=== PATIENT | female | born 1990 | race Caucasian/White ===

== ENCOUNTER 2023-11-16 03:49 | Inpatient (IN) ==
[2023-11-16 05:12] LABS: Urine Benzodiazepine Screen None Detected (None Detect); Urine Cannabinoids Screen None Detected (None Detect); Urine Opiates Screen None Detected (None Detect)
[2023-11-16] MEDS ORDERED: Lidocaine 1% VIAL 10 MG/ML 30 ML VIAL INJ PRN (05:12)
[2023-11-16] MEDS ORDERED: SYNTHROID 50 MCG PO SCH (06:00)
[2023-11-16 06:06] LABS: ABS Basophils 0.1 10^3/uL (0.0-0.1); ABS Eosinophils 0.1 10^3/uL (0.0-0.5); ABS Lymphocytes 1.5 10^3/uL (1.0-4.8); ABS Monocytes 0.8 10^3/uL (0.0-0.9); ABS Neutrophils 9.7 10^3/uL (1.5-7.6); Eosinophil % 0.7 %; Hematocrit 39.9 % (35-45); Hemoglobin 13.1 g/dL (11.5-14.3); Lymphocyte % 12.4 %; Mean Corpuscular Hemoglobin 28.1 pg (27-33); Mean Corpuscular Hgb Conc 32.9 g/dL (31-36); Mean Corpuscular Volume 85.5 fL (80-97); Mean Platelet Volume 9.3 fL (7.5-11.2); Platelet Count 250 10^3/uL (150-450); Red Blood Count 4.66 10^6/uL (3.63-4.92); White Blood Count 12.2 10^3/uL (3.8-11.8)
[2023-11-16 06:08] LABS: Urine Creatinine Concentration 46.62 mg/dL (20.00-320.00); Urine TP Creat Ratio 0.64 mg/mg
[2023-11-16 06:21] LABS: Albumin 3.7 g/dL (3.2-5.2); Albumin/Globulin Ratio 1.5 (1-3); Calcium 9.5 mg/dL (8.6-10.3); Creatinine, Serum 0.57 mg/dL (0.51-0.95); Globulin 2.5 g/dL (2-4); Potassium 3.9 mmol/L (3.5-5.0); Total Bilirubin 0.4 mg/dL (0.2-1.0); Total Protein 6.2 g/dL (6.4-8.9); eGFR CKD-EPI 124.5 (>60)
[2023-11-16 06:30] LABS: Uric Acid 4.8 mg/dL (2.3-6.6)
[2023-11-16] MEDS ORDERED: Calcium Carb (TUMS) 500 mg CHEW TAB PO PRN (09:05)
[2023-11-16] MEDS: miSOPROStol 100 mcg TAB PO ONE ×2 (12:08→19:25)
[2023-11-16] MEDS: Lactated Ringers 1000 ml BAG 1,000 ML IV SCH (17:05)
[2023-11-16] MEDS: Oxytocin in LR 20,000 MILLI.UNIT/1,000 ML BAG IV SCH (17:08)
[2023-11-17] MEDS: fentaNYL 100 mcg/2 ml 50 MCG/ML VIAL IV SLOW PU SCH (01:43)
[2023-11-17] MEDS: Phenylephrine 40 mcg/mL 10mL (400mcg) SYRINGE IV PUSH PRN (03:28)
[2023-11-17] MEDS: Lidocaine/Epinephrin 1.5%/200 5 ML AMP INJ ONE (04:06)
[2023-11-17 04:28] LABS: Urine Appearance Turbid; Urine Bilirubin Negative (Negative); Urine Blood 2+ (Negative); Urine Color Yellow; Urine Glucose Negative (Negative); Urine Ketones 4+ (Negative); Urine Nitrite Negative (Negative); Urine Protein 1+ (>=30 mg/dL) (Negative); Urine Specific Gravity 1.027 (1.002-1.030); Urine Urobilinogen Negative (Negative)
[2023-11-17] MEDS: OBEPIDURAL (200 ML) 200 ML EPIDURAL ONE (04:40)
[2023-11-17] MEDS ORDERED: Phenylephrine 40 mcg/mL 10mL (400mcg) SYRINGE IV PUSH PRN (04:48)
[2023-11-17 05:18] LABS: Urine Bacteria Absent /HPF (Absent); Urine Red Blood Cell 3+(>10/hpf) /HPF (0-Trace); Urine Squamous Epithelial Cell Present /HPF (Absent); Urine White Blood Cell 2+(11-20/hpf) /HPF (0-Trace)
[2023-11-17] MEDS: Lactated Ringers 1000 ml BAG 1,000 ML IV ONE (05:24)
[2023-11-17] MEDS: Lactated Ringers 1000 ml BAG 1,000 ML IV SCH (05:24)
[2023-11-17] MEDS: OBEPIDURAL (200 ML) 200 ML EPIDURAL SCH (05:25)
[2023-11-17] MEDS: Ondansetron 4 mg VIAL 2 MG/ML 2 ml VIAL IV PRN (09:14)
[2023-11-17] MEDS ORDERED: Bupivacaine-MPF SPINAL 7.5 MG/ML - 2ML AMP ONE (09:36)
[2023-11-17] MEDS: Sodium Citrate/Citric Acid LIQ 15 ML UDC PO PRN (16:42)
[2023-11-17] MEDS: Ampicillin ADVAN 2 GM in NS 0.9% 100 ml BAG 100 ML IVPB SCH (16:45)
[2023-11-17] MEDS ORDERED: Morphine PF AMP (0.5MG/ML) 5 MG/10 ML AMP ONE (16:53)
[2023-11-17] MEDS: Clindamycin 900 MG/D5W BAG 900 MG/50 ML BAG IVPB SCH (17:04)
[2023-11-17] MEDS ORDERED: KETAMINE HCL 10 MG/ML 20 ml VIAL (200 MG) ONE (17:22)
[2023-11-17] MEDS ORDERED: fentaNYL 100 mcg/2 ml 50 MCG/ML VIAL ONE (17:23)
[2023-11-17] MEDS ORDERED: Ondansetron 4 mg VIAL 2 MG/ML 2 ml VIAL ONE (17:24)
[2023-11-17] MEDS ORDERED: Oxytocin 10 UNITS/ML 1 ML VIAL ONE ×2 (17:24→18:41)
[2023-11-17] MEDS ORDERED: Midazolam 2 mg/2 ml VIAL 1 mg/ml 2 ml VIAL (2 mg) ONE (17:29)
[2023-11-17] MEDS ORDERED: HYDROmorphone 1 MG/1 ML SYRINGE ONE ×2 (17:54→18:19)
[2023-11-17] MEDS ORDERED: Propofol 10 MG/ML 20 ML BTL ONE (17:54)
[2023-11-17] MEDS ORDERED: Acetaminophen IV 1 GM/100ML 1,000 MG/100 ML BAG IV ONE (17:55)
[2023-11-17] MEDS ORDERED: Naloxone 0.4 mg VIAL 0.4 mg/ml 1 ml VIAL IV PRN (19:37)
[2023-11-17] MEDS: Azithromycin 500 mg/250 ml NS 500 MG/250 ML BAG IVPB ONE (19:44)
[2023-11-17] MEDS: Gentamicin ADULT 350 MG in NS 0.9% 100 ml BAG 100 ML IVPB SCH (19:44)
[2023-11-17] MEDS: HYDROmorphone 1 MG/1 ML SYRINGE IV PRN (19:57)
[2023-11-17] MEDS ORDERED: Glycerin ADULT 2.4 gm SUPP PR PRN (22:06)
[2023-11-17] MEDS ORDERED: Witch Hazel PAD JAR TOPICAL PRN (22:06)
[2023-11-17] MEDS ORDERED: Lactated Ringers 1000 ml BAG 1,000 ML IV SCH (23:00)
[2023-11-18] MEDS: Oxytocin in LR 20,000 MILLI.UNIT/1,000 ML BAG IV SCH (00:50)
[2023-11-18 07:02] LABS: Hematocrit 26.3 % (35-45); Hemoglobin 8.7 g/dL (11.5-14.3); Mean Corpuscular Hemoglobin 28.1 pg (27-33); Mean Corpuscular Volume 85.1 fL (80-97); Mean Platelet Volume 8.1 fL (7.5-11.2); Platelet Count 143 10^3/uL (150-450); Red Blood Count 3.09 10^6/uL (3.63-4.92); White Blood Count 19.8 10^3/uL (3.8-11.8)
[2023-11-18 07:36] LABS: ABS Basophils 0.1 10^3/uL (0.0-0.1); ABS Eosinophils 0.2 10^3/uL (0.0-0.5); ABS Lymphocytes 1.4 10^3/uL (1.0-4.8); ABS Monocytes 1.5 10^3/uL (0.0-0.9); ABS Neutrophils 16.8 10^3/uL (1.5-7.6); Eosinophil % 0.8 %; Lymphocyte % 6.8 %
[2023-11-18 08:47] LABS: Urine Appearance Clear; Urine Bilirubin Negative (Negative); Urine Blood 2+ (Negative); Urine Color Light-Yellow; Urine Glucose Negative (Negative); Urine Ketones Negative (Negative); Urine Nitrite Negative (Negative); Urine Protein Negative (Negative); Urine Specific Gravity 1.006 (1.002-1.030); Urine Urobilinogen Negative (Negative); Urine pH 5.5 (5.0-8.0)
[2023-11-18 08:50] LABS: Urine Bacteria Absent /HPF (Absent); Urine Red Blood Cell 1+(3-5/hpf) /HPF (0-Trace); Urine White Blood Cell Trace(0-5/hpf) /HPF (0-Trace)
[2023-11-18] MEDS: Neomycin/Polym/Bacit TOP OINT 15 GM TOPICAL SCH (17:05)
[2023-11-18] MEDS: Ampicillin ADVAN 2 GM in NS 0.9% 100 ml BAG 100 ML IVPB SCH (18:38)
[2023-11-19] MEDS: Lactated Ringers 1000 ml BAG 1,000 ML IV ONE (12:12)
[2023-11-19] MEDS: Butalb/Acetamin/Caff TAB 325-50-40MG PO PRN (13:04)
[2023-11-20 08:15] VITALS: BP 122/74
== END 2023-11-20 14:34 | disposition home or self-care (01) | DRG 540 ==
LOC: MCHOBOUT 03:49 → MCHOB 05:06
PROVIDERS: ADMIT Midwife; ATTEND Obstetrics & Gynecology